=== PATIENT | male | born 1980 | race Hispanic/Latino ===

== ENCOUNTER 2023-06-22 06:26 | Emergency (ER) | payer OTHER, SELFPAY ==
[2023-06-22 06:27] VITALS: BP 138/89; PULSE 69; RESP 18; TEMP 36.2; O2SAT 98; BMI 29.0
--- OUTSIDE RECORDS SUMMARY | 2023-06-22 06:47 | XMS RPT_ITS | CCD ---
Author Name Unknown Address [address] [place] [address] [address] [place] [id number] Organization [facility] Care Team Providers Care Stock Room Manager Name Role Phone Unavailable Primary Care Provider Unavailabl e Results Test Name Value Interpretation Reference Range Facil ity Encounters Encounter Date Encounter Type Care Provider Facility Start: 05-26-2008 Documentation procedure Kody Chang Work Phone: [facility] Start: 05-26-2008 Historic EMR Kody burden Work Phone: [facility] Procedures Date Procedure Procedure Detail Performing Clinician Start: 05-25-2008 SURGICAL PATHOLOGY, CONVERTED Kody Chang Work Phone: Social History Date Type [facility]ail [facility] Start: 07-22-2020 History of Social function [facility] Start: 07-22-[address] [facility] National Score (1-10 0), lower number is lower risk Not on file [facility] Start: 1978 Sex Assigned At Not on file [facility] Summary Purpose Family History No Family History Records Found Advance Directives No Advanced Directives Records Found Additional Source Comments (unrecognized sect ion and content) No Status Records Found INFORMATION SOURCE (unrecogn ized section and content) Source Comments (unrecognize d section and content) In the event this informatio n is protected by the Federal Confidentiality of Alcohol and Drug Abuse Patient Records regulations: The Federal rules restrict any use of the information to criminally investigate or prosecute any alcohol or drug abuse patient.[facility] FOR RECORDS PERTAINING TO PATIENTS WHO ARE OR HAVE BEEN ENROLLED IN A CHEMICAL DEPENDENCY/SUBSTANCEABUSE PROGRAM, SOME INFORMATION MAY BE OMITTED. This clinical summary was aggregated from multiple sources. Caution should be exercised in using it in the provision of clinical care. This summary normalizes information from multiple sources, and as a consequence, information in this document may materially change the coding, format and clinical context of patient data. In addition, data may be omitted in some cases. CLINICAL DECISIONS SHOULD BE BASED ON THE PRIMARY CLINICAL RECORDS. [facility] [employer] [facility]. provides no warranty or guarantee of the accuracy or completeness of information in this document.
--- NOTE | 2023-06-22 07:20 | RAD_ITS ---
INDICATION: injury EXAMINATION/TECHNIQUE: X-RAY - LEFT HAND XR Fingers Min 2 Views 3 VIEWS COMPARISON: None FINDINGS: SOFT TISSUES: Third digit edema with laceration at the level of the proximal interphalangeal joint. No radiodense soft tissue foreign body.. BONES/JOINTS: No acute fracture or subluxation.. Normal alignment. Preservation of the joint space.. No sclerotic or destructive changes observed. RAD/Finger(s) Min 2 Views IMPRESSION: Third digit soft tissue wound without radiodense foreign body or visible fracture. . Electronically Signed: Kirt Lacy MD at 8:16 EST ,
--- NOTE | 2023-06-22 08:08 | EX.ED.UPPERE ---
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 He is right-hand dominant. He states he was using a knife that is used to cut a cow. Denies any numbness or other injuries. Tetanus Immunization: <5 years (3 years) PFSH PFSH Medical History no medical history no medical history Home Medications acetaminophen 325 mg capsule (Tylenol) 325 mg PO Q6H PRN 08/22/18 [History Last Taken Unknown] methylprednisolone 4 mg tablets in a dose pack (Medrol (Cricket)) See Rx Instructions PO PER PKG DIR #21 tabs 09/02/20 [Rx Last Taken Unknown] Allergy/AdvReac Type Severity Reaction Status Date / Time No Known Allergies Allergy Verified 06/22/23 06:27 Surgical History (Updated 12/12/21 @ 21:53 by iGselle Alcaraz RN) Hx of abdominal surgery hx of leg surgery Social History Smoking Status: Never smoker alcohol intake: never ROS ROS ED Constitutional Constitutional ED: Denies chills or fever(s) Musculoskeletal Musculoskeletal: Reports extremity pain; Denies neck pain Integumentary Reports laceration; Denies Abrasions or rash Neurologic Neurologic: Denies paresthesias or weakness EXAM Physical Exam Const Vital Signs: 06/22/23 06:27 Temperature 97.1 F L Temperature Source Temporal Pulse Rate 69 Respiratory Rate 18 Blood Pressure 138/89 H Blood Pressure Mean 105 Pulse Ox 98 Oxygen Delivery Method Room Air Positive well nourished and well developed General Appearance ED: well developed and NAD Neck full ROM and supple Back/Spine normal ROM and normal to inspection Extremity Extremity Narrative: Laceration to the dorsum of the left index finger, crosses the PIPJ. Full extension without difficulty or pain. No other injuries and no problems flexing. Full range of motion all joints. Tender at the laceration. Neuro oriented x3, no focal motor deficits and no sensory deficits noted Sensorium / Orientation: alert Psych mental status grossly normal and thought process normal Skin Skin Narrative: 2.5 cm laceration dorsum of the left index finger. It crosses the PIPJ and does not involve the lateral aspect of the finger. Tendon is visible within the laceration, is possible there is a neck in it, but there is no complete injury to the tendon that is visible throughout the range. No gross contamination. Rashes: no rashes MDM MDM MDM Narrative Medical decision making narrative: Three-view x-ray of the left index finger negative for acute bony involvement or foreign material that is radiographically visible. The laceration was repaired see the procedure note, he is moving it without difficulty, given appropriate work restrictions and follow-up. I do not think the tendon is likely injured, it is possible that there was a small christiane in it but it was difficult to tell with the overlying enveloping tissue/fascia, but I do not think he needs to be in prolonged splinting. Procedures Lacerations L index finger: Length: 2.5 cm Depth: Tendon Shape: Linear Prep: Sterile Conditions and Chlorhexadine Laceration repair: Irrigated, Lidocaine (1% & bupivacaine 0.5%, 50:50 mix, 2cc), Local, Skin sutures and Wound explored Irrigated (ml): 80 Number of Sutures/[place]: 5 Suture Information: Ethilon, Simple and 5-0 Discharge Plan Triage Chief Complaint: Laceration ED Provider: Omari Gramajo Dx/Rx/DC Orders Clinical Impression: Laceration of left index finger w/o foreign body w/o damage to nail Instructions: ED Laceration, Hand: All Closures Prescriptions: No Action acetaminophen [Tylenol] 325 mg capsule 325 mg PO Q6H PRN methylprednisolone [Medrol (Cricket)] 4 mg tablets,dose pack See Rx Instructions PO PER PKG DIR Qty: 21 0RF Rx Instructions: PO PER PKG DIR Stand Alone Forms: Work Status Form Primary Care Provider: Care Physician,No Primary Referrals: [facility] [Group of Physicians] - 10-14 Days suture removal Print Language: [place] Disposition Disposition: Home, Self Care
[2023-06-22 08:43] VITALS: BP 118/64; PULSE 87; RESP 16; O2SAT 100
[2023-06-22] MEDS: Lidocaine/Epi/Tetracaine 50 ML 1 APPLIC TOPICAL (08:45)
== END 2023-06-22 08:46 | disposition home or self-care (01) ==
PROVIDERS: Emergency Provider Emergency Medicine; Visit Provider Emergency Medicine
DX: S61.211A Laceration without foreign body of left index finger without damage to nail, initial encounter (principal); W26.0XXA Contact with knife, initial encounter; Y93.89 Activity, other specified; Y99.0 Civilian activity done for income or pay
CPT/HCPCS: 12001; 73140; 99283